=== PATIENT | female | born 1995 | race Caucasian/White ===

== ENCOUNTER 2017-09-26 08:50 | Emergency (ER) | payer SELFPAY ==
[2017-09-26 08:59] VITALS: BP 121/66
[2017-09-26] MEDS ORDERED: DEXAMETHASONE 10 MG/ML VIAL PO STA (09:35)
--- NOTE | 2017-09-26 09:39 | ED Physician Documentation ---
History of Present Illness - Stated complaint Stated Complaint: SORE THROAT - Chief complaint Chief Complaint: Heent - Additonal information Additional information: hx from pt 22 f denies preg has Von [place]brands to ER today with sore throat since yesterday fever chills no sig cough Review of Systems Constitutional: reports: Fever, Chills Throat: reports: Sore throat GI: denies: Abdominal Pain, Nausea, Vomiting : denies: Now EGA Endocrine: reports: Easy bruising / bleeding PD PAST MEDICAL HISTORY - Past Medical History Past Medical History: Yes - Present Medications Home Medications: Ambulatory Orders Medication Instructions Recorded Confirmed Dextromethorphan/Benzocaine 1 each PO Q4H PRN #20 lozenge 09/26/17 [Cepacol Sorethroat-Cough Hunter] - Allergies Allergies/Adverse Reactions: Allergies Allergy/AdvReac Type Severity Reaction Status Date / Time shellfish derived Allergy Mild Emesis Verified 09/26/17 09:02 - Social History Does the pt smoke?: Yes Smoking Status: Current every day smoker Does the pt drink ETOH?: Yes Does the pt have substance abuse?: Yes Substance Use and Type: Marijuana PD ED PE NORMAL - Vitals Vital signs reviewed: Yes - General General: Alert and oriented X 3 - HEENT HEENT: Ears normal, Moist mucous membranes. No: Pharynx benign (erthema swelling mendoza and exudate on L) - Neck Neck: No: No adenopathy (anterior) - Cardiac Cardiac: RRR - Respiratory Respiratory: No respiratory distress, Clear bilaterally - Abdomen Abdomen: Non tender - Derm Derm: Normal color - Neuro Neuro: Alert and oriented X 3 Results - Vitals Vitals: Vital Signs - 24 hr 09/26/17 08:58 Temperature 37.1 C Heart Rate 92 Respiratory 16 Rate Blood Pressure 121/66 O2 Saturation 100 Oxygen O2 Source Room air - Labs Labs: Laboratory Tests 09/26/17 08:55 Group A Strep Rapid Negative Departure - Departure Disposition: 01 Home, Self Care Clinical Impression: Pharyngitis Qualifiers: Pharyngitis/tonsillitis etiology: unspecified etiology Qualified Code(s): J02.9 - Acute pharyngitis, unspecified Condition: Good Instructions: ED Pharyngitis Viral Report Pending Prescriptions: Dextromethorphan/Benzocaine [Cepacol Sorethroat-Cough Hunter] 1 each PO Q4H PRN # 20 lozenge PRN Reason: sore throat Comments: The rapid strep was negative - an official throat culture will also be run and the ER staff will call you if it is positive and you need antibiotics. Use the cepacol as needed for sore throat Rest and drink plenty of fluids Forms: Activity restrictions
[2017-09-26] MEDS ORDERED: CHERRY SYRUP 10 ML UDC PO ONE (09:48)
== END 2017-09-26 10:52 | disposition home or self-care (01) ==
LOC: ED 08:50
DX: J02.9 Acute pharyngitis, unspecified (principal); F17.200 Nicotine dependence, unspecified, uncomplicated
CPT/HCPCS: 87070; 87430; 99283; A9270

== ENCOUNTER 2018-02-21 19:23 | Emergency (ER) | payer MEDICAID ==
--- NOTE | 2018-02-21 21:35 | ED Physician Documentation ---
PD HPI NVD - Stated complaint Stated Complaint: 9WKS PREG/VOMITING - Chief complaint Chief Complaint: Abd Pain - History obtained from History obtained from: Patient - History of Present Illness Timing - onset: How many days ago (3) Timing - duration: Days (3) Timing - details: Abrupt onset, Intermittant, Waxing and waning Pain level now: 8 Associated symptoms: Abdominal pain (epigastric). No: Fever, Hematemesis, Vaginal bleeding Improved by: Other (no ameliorating factors) Worsened by: Eating Similar symptoms before: Has not had sx before Recently seen: Not recently seen - Additonal information Additional information: patient c/o nausea, vomiting x 3 days; says she has not been able to hold down any PO for 3 days including sips of liquids. She is , she approximates 8 -10 weeks. She has Von Willibrand's disease. Review of Systems Constitutional: denies: Fever, Chills, Sweats Cardiac: reports: Reviewed and negative Respiratory: reports: Reviewed and negative GI: reports: Abdominal Pain, Nausea, Vomiting. denies: Constipation, Diarrhea : denies: Dysuria, Frequency Musculoskeletal: denies: Back pain Neurologic: denies: Headache Endocrine: denies: Easy bruising / bleeding PD PAST MEDICAL HISTORY - Past Medical History Past Medical History: No Other Past Medical History: von willebrand disease - Past Surgical History Past Surgical History: No - Present Medications Home Medications: Ambulatory Orders Medication Instructions Recorded Confirmed Ondansetron Odt [Zofran Odt] 4 mg TL Q6H PRN #14 tablet 02/22/18 - Allergies Allergies/Adverse Reactions: Allergies Allergy/AdvReac Type Severity Reaction Status Date / Time shellfish derived Allergy Mild Emesis Verified 02/21/18 19:42 - Social History Does the pt smoke?: No Smoking Status: Never smoker Does the pt drink ETOH?: No Does the pt have substance abuse?: No - Immunizations Immunizations are current?: Yes PD ED PE NORMAL - Vitals Vital signs reviewed: Yes - General General: Alert and oriented X 3, Well developed/nourished, Other (anxious, tachypneic when I first enter room (during HPI/ROS, the tachypnea resolves)) - HEENT HEENT: Other (dry mucous membranes) - Cardiac Cardiac: RRR, No murmur, No gallop, No rub - Respiratory Respiratory: No respiratory distress, Clear bilaterally - Abdomen Abdomen: Soft, Non tender, Non distended - Back Back: Other (mild bilateral CVA tenderness) - Derm Derm: Normal color, Warm and dry Results - Vitals Vitals: Vital Signs - 24 hr 02/21/18 02/22/18 19:39 02:28 Temperature 36.6 C Heart Rate 63 66 Respiratory 16 18 Rate Blood Pressure 133/85 H 129/73 O2 Saturation 100 98 Oxygen O2 Source Room air - Labs Labs: Laboratory Tests 02/21/18 02/21/18 02/21/18 22:15 22:15 22:15 WBC 7.3 RBC 4.97 Hgb 16.0 Hct 45.9 MCV 92.4 MCH 32.3 H MCHC 34.9 RDW 12.3 Plt Count 262 MPV 7.9 Neut # (Auto) 4.6 Lymph # (Auto) 2.1 Mcdowell # (Auto) 0.5 Eos # (Auto) 0.1 Baso # (Auto) 0.0 Absolute Nucleated RBC 0.01 Nucleated RBC % 0.1 Sodium 130 L Potassium 3.1 L Chloride 94 L Carbon Dioxide 23 Anion Gap 13.0 BUN 11 Creatinine 0.7 Estimated GFR (MDRD) 107 Glucose 80 Calcium 9.6 Total Bilirubin 1.4 H AST 21 ALT 18 Alkaline Phosphatase 61 Total Protein 9.3 H Albumin 4.6 Globulin 4.7 H Albumin/Globulin Ratio 1.0 Lipase 27 HCG, Quant 21566.00 Urine Color Urine Clarity Urine pH Ur Specific Industry Urine Protein Urine Glucose (UA) Urine Ketones Urine Occult Blood Urine Nitrite Urine Bilirubin Urine Urobilinogen Ur Leukocyte Esterase Urine RBC Urine WBC Ur Squamous Epith Cells Urine Bacteria Ur Microscopic Review Urine Culture Comments 02/21/18 22:46 WBC RBC Hgb Hct MCV MCH MCHC RDW Plt Count MPV Neut # (Auto) Lymph # (Auto) Mcdowell # (Auto) Eos # (Auto) Baso # (Auto) Absolute Nucleated RBC Nucleated RBC % Sodium Potassium Chloride Carbon Dioxide Anion Gap BUN Creatinine Estimated GFR (MDRD) Glucose Calcium Total Bilirubin AST ALT Alkaline Phosphatase Total Protein Albumin Globulin Albumin/Globulin Ratio Lipase HCG, Quant Urine Color YELLOW Urine Clarity CLOUDY Urine pH 6.0 Ur Specific Industry >=1.030 H Urine Protein TRACE Urine Glucose (UA) NEGATIVE Urine Ketones 40 H Urine Occult Blood LARGE H Urine Nitrite NEGATIVE Urine Bilirubin NEGATIVE Urine Urobilinogen 0.2 (NORMAL) Ur Leukocyte Esterase NEGATIVE Urine RBC 6-10 H Urine WBC 4-5 Ur Squamous Epith Cells MANY Squamous H Urine Bacteria Few Ur Microscopic Review INDICATED Urine Culture Comments NOT INDICATED - Rads (name of study) pelvic US Radiology: Prelim report reviewed, See rad report PD MEDICAL DECISION MAKING - ED course Complexity details: reviewed results, re-evaluated patient, considered differential, d/w patient ED course: On reevaluation, after IV fluids, tests resulted, and IV zofran, patient is in NAD, reports resolution of symptoms. Results reviewed and she is comfortable with discharge home. - Sepsis Event Vital Signs: Vital Signs - 24 hr 02/21/18 02/22/18 19:39 02:28 Temperature 36.6 C Heart Rate 63 66 Respiratory 16 18 Rate Blood Pressure 133/85 H 129/73 O2 Saturation 100 98 Oxygen O2 Source Room air Departure - Departure Disposition: 01 Home, Self Care Clinical Impression: Vomiting during Condition: Good Instructions: ED Preg Morning Sickness Follow-Up: Sandra Moss DO [Provider Admit Priv/Credential] - Within 1 week Prescriptions: Ondansetron Odt [Zofran Odt] 4 mg TL Q6H PRN #14 tablet PRN Reason: Nausea / Vomiting Discharge Date/Time: 02/22/18 02:28
[2018-02-21] MEDS ORDERED: ONDANSETRON 4 MG/2 ML VIAL IVP STA (21:48)
[2018-02-21] MEDS ORDERED: SODIUM CHLORIDE 0.9% 1,000 ML IV STA (21:48)
[2018-02-21 22:22] LABS: BASOPHILS % (AUTO) 0.4 %; EOSINOPHILS # (AUTO) 0.1 10^3/uL (0.0-0.7); EOSINOPHILS % (AUTO) 0.9 %; LYMPHOCYTES # (AUTO) 2.1 10^3/uL (1.5-3.5); MEAN CORPUSCULAR HEMOGLOBIN 32.3 pg (27.0-31.0); MEAN CORPUSCULAR HGB CONC 34.9 g/dL (32.0-36.0); MEAN CORPUSCULAR VOLUME 92.4 fL (81.0-99.0); MEAN PLATELET VOLUME 7.9 fL (7.9-10.8); MONOCYTES # (AUTO) 0.5 10^3/uL (0.0-1.0); MONOCYTES % (AUTO) 6.8 %; NEUTROPHILS # (AUTO) 4.6 10^3/uL (1.5-6.6); NEUTROPHILS % (AUTO) 62.9 %; PLT - PLATELET COUNT 262 10^3/uL (130-450); RED BLOOD COUNT 4.97 10^6/uL (4.20-5.40); RED CELL DISTRIBUTION WIDTH 12.3 % (12.0-15.0); WHITE BLOOD COUNT 7.3 x10^3/uL (4.8-10.8)
[2018-02-21 22:35] LABS: ALBUMIN 4.6 g/dL (3.2-5.5); BILIRUBIN,TOTAL 1.4 mg/dL (0.2-1.0); CALCIUM 9.6 mg/dL (8.5-10.3); CREATININE 0.7 mg/dL (0.4-1.0); TOTAL PROTEIN 9.3 g/dL (6.7-8.2)
[2018-02-21 22:54] LABS: GLUCOSE, URINE (UA) NEGATIVE (NEGATIVE); KETONES,URINE (UA) 40 mg/dL (NEGATIVE); LEUKOCYTE ESTERASE, URINE NEGATIVE (NEGATIVE); NITRITE,URINE NEGATIVE (NEGATIVE); OCCULT BLOOD,URINE LARGE (NEGATIVE); PROTEIN,URINE TRACE mg/dL (NEGATIVE); UROBILINOGEN,URINE 0.2 (NORMAL) E.U./dL (NORMAL)
[2018-02-21 23:01] LABS: BILIRUBIN,URINE NEGATIVE (NEGATIVE); CLARITY,URINE CLOUDY (CLEAR); ICTOTEST,URINE NEGATIVE
[2018-02-21 23:12] LABS: BACTERIA,URINE Few /HPF (None Seen); SQUAMOUS EPITHELIAL CELL,UR MANY Squamous (<= Few)
--- NOTE | 2018-02-22 01:08 | Ultrasound Report ---
Procedure Date: 02/22/2018 Accession Number: [id number] / [id number] Procedure: US - OB First Trimester CPT Code: FULL RESULT: EXAM: FIRST TRIMESTER OBSTETRIC ULTRASOUND (Less than 11 weeks) EXAM DATE: 02/22/2018 12:47 AM. CLINICAL HISTORY: , vomiting, abdominal discomfort. LMP: 12/14/2017, 10 weeks 0 days. COMPARISONS: None. TECHNIQUE: Transabdominal and transvaginal ultrasound examination with static image documentation. FINDINGS: Gestational Sac: An intrauterine fluid-filled sac contains both an embryo and yolk sac. Embryo: CRL (crown-rump length) measures 7 mm corresponding to an estimated gestational age of 6 weeks 5 days. Heart Rate: 134 beats per minute. Placenta: Not visible at this gestational age. Amniotic fluid: Not accurately assessed at this gestational age. Uterus: Unremarkable anteverted appearance. Cervix: Closed. Right Ovary: Volume 7 cc. Normal echotexture and blood flow. Left Ovary: Volume 7 cc. Normal echotexture and blood flow. Free Fluid: None. Other: None. IMPRESSION: Single live intrauterine at 6 weeks 5 days by crown-rump length -- for an estimated delivery date of 10/13/2018. No acute abnormality seen. RADIA
[2018-02-22] MEDS ORDERED: ONDANSETRON ODT 4 MG Prepack 2 TL STA (02:11)
[2018-02-22] MEDS ORDERED: POTASSIUM BICARB 25 MEQ TABLET PO STA (02:17)
[2018-02-22 02:29] VITALS: BP 129/73
== END 2018-02-22 02:28 | disposition home or self-care (01) ==
LOC: ED 19:23
DX: O21.9 Vomiting of pregnancy, unspecified (principal); Z3A.09 9 weeks gestation of pregnancy; D68.0 Von Willebrand disease
CPT/HCPCS: 36415; 76801; 76817; 80053; 81001; 83690; 84702; 85025; 96361; 96374; 99283; 99284; A9270; 81003; 87086

== ENCOUNTER 2018-03-07 12:56 | Emergency (ER) | payer MEDICAID ==
[2018-03-07 13:06] VITALS: BP 125/74
--- NOTE | 2018-03-07 14:11 | ED Physician Documentation ---
PD HPI NVD - Stated complaint Stated Complaint: VOMITING/NAUSEA - Chief complaint Chief Complaint: Abd Pain - History obtained from History obtained from: Patient - History of Present Illness Timing - onset: How many weeks ago (few) Timing - duration: Weeks (few weeks, since early ) Timing - details: Gradual onset, Still present, Waxing and waning Associated symptoms: Loss of appetite. No: Fever, Abdominal pain, Hematemesis, Near syncope / syncope Contributing factors: Other (early ). No: Sick contact, Bad food, Travel Improved by: Meds (zofran helps a lot and she is out of it. Initial OB appt is still weeks away.). No: Eating Worsened by: Eating Similar symptoms before: Has not had sx before Recently seen: Emergency Dept (given Rx for Zofran, which helped a lot.) Review of Systems Constitutional: denies: Fever, Chills Nose: denies: Rhinorrhea / runny nose, Congestion Throat: denies: Sore throat Respiratory: denies: Cough GI: reports: Nausea, Vomiting. denies: Abdominal Pain, Diarrhea : reports: Now EGA (8). denies: Dysuria, Frequency Skin: denies: Rash, Lesions Neurologic: denies: Near syncope PD PAST MEDICAL HISTORY - Past Medical History Cardiovascular: None Respiratory: None Neuro: None - Past Surgical History Past Surgical History: No - Present Medications Home Medications: Ambulatory Orders Medication Instructions Recorded Confirmed Ondansetron Odt [Zofran Odt] 4 mg TL Q6H PRN #14 tablet 02/22/18 Dexamethasone [Decadron] 4 mg PO DAILY #5 tablet 03/07/18 Ondansetron Odt [Zofran] 4 mg TL Q6H PRN #30 tablet 03/07/18 Pyridoxine HCl [Vitamin B-6] 25 mg PO BID #60 tablet 03/07/18 - Allergies Allergies/Adverse Reactions: Allergies Allergy/AdvReac Type Severity Reaction Status Date / Time shellfish derived Allergy Mild Emesis Verified 02/21/18 19:42 - Social History Does the pt smoke?: No Smoking Status: Never smoker Does the pt drink ETOH?: No Does the pt have substance abuse?: No - Immunizations Immunizations are current?: Yes PD ED PE NORMAL - Vitals Vital signs reviewed: Yes - General General: Alert and oriented X 3, No acute distress, Well developed/nourished - HEENT HEENT: Pharynx benign. No: Moist mucous membranes - Neck Neck: Supple, no meningeal sign, No adenopathy - Cardiac Cardiac: RRR, No murmur - Respiratory Respiratory: Clear bilaterally - Abdomen Abdomen: Soft, Non tender - Back Back: No CVA TTP - Derm Derm: Normal color, Warm and dry, No rash - Neuro Neuro: Alert and oriented X 3, No motor deficit, Normal speech Results - Vitals Vitals: Oxygen O2 Source Room air PD MEDICAL DECISION MAKING - ED course Complexity details: re-evaluated patient (feeling much better), considered differential (seems related hyperemesis. She did not feel she needed IV fluids. Oral meds given and she is feeling better. Will add Vit B-6 and short course decadron. ) - Sepsis Event Vital Signs: Oxygen O2 Source Room air Departure - Departure Disposition: Home, Self Care Clinical Impression: Nausea and vomiting Qualifiers: Vomiting type: unspecified Vomiting Intractability: non-intractable Qualified Code(s): R11.2 - Nausea with vomiting, unspecified Condition: Stable Record reviewed to determine appropriate education?: Yes Instructions: ED Preg Morning Sickness, ED Nausea Vomiting Follow-Up: [facility] [Provider Group] Prescriptions: Dexamethasone [Decadron] 4 mg PO DAILY #5 tablet Ondansetron Odt [Zofran] 4 mg TL Q6H PRN #30 tablet PRN Reason: Nausea / Vomiting Pyridoxine HCl [Vitamin B-6] 25 mg PO BID #60 tablet Comments: Small frequent fluids. [place] food and progress as able. Ondansetron every 6 hours if needed for nausea and vomiting. Vitamin B6 twice daily regularly will reduce the amount of nausea as well. Decadron daily for the next 5 days will help as well. Call [facility] to set up an appointment. Return as needed. Discharge Date/Time: 03/07/18 15:52
[2018-03-07] MEDS ORDERED: DEXAMETHASONE 10 MG/ML VIAL IM STA (14:36)
[2018-03-07] MEDS ORDERED: ONDANSETRON 4 MG/2 ML VIAL IM STA (14:36)
== END 2018-03-07 15:52 | disposition home or self-care (01) ==
LOC: ED 12:56
DX: O21.9 Vomiting of pregnancy, unspecified (principal); Z3A.08 8 weeks gestation of pregnancy
CPT/HCPCS: 96372; 99282; 99283

== ENCOUNTER 2018-06-19 17:17 | Emergency (ER) | payer MEDICAID ==
[2018-06-19 17:27] VITALS: BP 126/81
[2018-06-19] MEDS ORDERED: SULFAM/TRIM 800/160 Prepack 2 PO ONE (21:01)
--- NOTE | 2018-06-19 21:04 | ED Physician Documentation ---
PD HPI SKIN - Stated complaint Stated Complaint: CYST - Chief complaint Chief Complaint: Wound - History obtained from History obtained from: Patient, Family - History of Present Illness Timing - onset: How many weeks ago (11) Timing - duration: Weeks Timing - details: Gradual onset, Still present Location: Other (left buttocks) Quality / character: Painful, Raised Associated symptoms: No: Fever, Myalgias, Joint pain, Headache Similar symptoms before: Has not had sx before Recently seen: Not recently seen - Additional information Additional information: 23-year-old female has developed a red swollen area in the gluteal fold on the left side beginning about 1 week ago. She has had increasing pain and tenderness to the area. She has not had fever. Review of Systems Constitutional: denies: Fever Ears: denies: Ear pain Nose: denies: Congestion Respiratory: denies: Cough GI: denies: Vomiting Skin: reports: Other (swollen tender raised area over left gluteal fold) Musculoskeletal: denies: Neck pain, Back pain, Extremity pain Neurologic: denies: Generalized weakness, Focal weakness, Numbness PD PAST MEDICAL HISTORY - Past Medical History Past Medical History: Yes Cardiovascular: None Respiratory: None Neuro: None Endocrine/Autoimmune: None GI: None HIGH SCHOOL ASSISTANT PRINCIPAL: None : None HEENT: None Psych: None Musculoskeletal: None Derm: None - Past Surgical History Past Surgical History: No - Present Medications Home Medications: Ambulatory Orders Medication Instructions Recorded Confirmed Ondansetron Odt [Zofran Odt] 4 mg TL Q6H PRN #14 tablet 02/22/18 Dexamethasone [Decadron] 4 mg PO DAILY #5 tablet 03/07/18 Ondansetron Odt [Zofran] 4 mg TL Q6H PRN #30 tablet 03/07/18 Pyridoxine HCl [Vitamin B-6] 25 mg PO BID #60 tablet 03/07/18 Sulfamethoxazole/Trimethoprim 1 each PO BID #14 tablet 06/19/18 [Sulfamethoxazole-Tmp Ds Tablet] - Allergies Allergies/Adverse Reactions: Allergies Allergy/AdvReac Type Severity Reaction Status Date / Time shellfish derived Allergy Mild Emesis Verified 06/19/18 17:27 - Social History Does the pt smoke?: No Smoking Status: Never smoker Does the pt drink ETOH?: No Does the pt have substance abuse?: No - Immunizations Immunizations are current?: Yes - POLST Patient has POLST: No PD ED PE NORMAL - Vitals Vital signs reviewed: Yes (hypertensive ) - General General: Alert and oriented X 3, No acute distress, Well developed/nourished - HEENT HEENT: Atraumatic, PERRL, EOMI - Respiratory Respiratory: No respiratory distress - Female Female : Rn Immunology present (verónica), Other (over the left gluteal fold is an area about 3cm X 1cm raised erythematous tender and firm without fluctuance. There is no drainage and no head. 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 She is placed on some Sept I discussed with her the ripening process and asked her to use a warm compress 2-3 times per day. I have asked her to return to the emergency department should she have ripening. Departure - Departure Disposition: 01 Home, Self Care Clinical Impression: Abscess Condition: Stable Instructions: ED Staph Infec Abx Tx Only Follow-Up: [facility] [Provider Group] Prescriptions: Sulfamethoxazole/Trimethoprim [Sulfamethoxazole-Tmp Ds Tablet] 1 each PO BID #14 tablet
== END 2018-06-19 21:13 | disposition home or self-care (01) ==
LOC: ED 17:17
DX: L02.31 Cutaneous abscess of buttock (principal)
CPT/HCPCS: 99283